=== PATIENT | female | born 1980 | race American Indian/Alaskan Native ===

== ENCOUNTER 2018-10-26 01:42 | Inpatient (IN) | payer MEDICAID ==
[2018-10-26] MEDS ORDERED: LACTATED RINGERS 1,000 ML ONE (02:02)
[2018-10-26] MEDS ORDERED: PITOCin/NS 20 UNIT/1000ML DRIP 20,000 MILLIUNITS/1,000 ML BAG IV ONE ×2 (02:02→03:08)
[2018-10-26] MEDS ORDERED: STADOL ONE (02:44)
[2018-10-26] MEDS ORDERED: XYLOCAINE 2% INFILTRATI ONE ×2 (02:45→03:52)
--- NOTE | 2018-10-26 03:44 | History and Physical Report ---
History of Present Illness Date of examination: 10/26/18 Date of admission: 10/26/18 01:56 Chief complaint: labor History of present illness: Menstrual History Regularity: regular Menses every: 28 days Duration: 4 LMP: 01/24/2018 LMP reliability: definite LMP character: normal test type: urine test Date: 05/17/2018 BC at conception: none Planned ? yes EDC Calculations LMP: 10/31/2018 EDC Confirmation: 10/31/2018 Gestational Age: 16 1/7 weeks Past History : 5 Term Births: 4 Premature Births: 0 Living Children: 4 Para: 4 Mult. Births: 0 Prev : 0 Aborta: 0 Elect. Ab: 0 Spont. Ab: 0 Ectopics: 0 # 1 Delivery date: 05/02/2003 Weeks Gestation: 40 Delivery type: Hours of labor: 8 Anesthesia type: epidural Delivery location: [facility] Sex: Male weight: [id number] Comments: Mild shoulder dystocia # 2 Delivery date: 01/31/2006 Weeks Gestation: 40 Delivery type: Hours of labor: 4 Delivery location: [facility] Infant Sex: Male weight: [id number] Comments: + Hep B # 3 Delivery date: 05/17/2007 Weeks Gestation: 41 Delivery type: Hours of labor: 3 Anesthesia type: none Delivery location: [facility] Sex: Male weight: [id number] # 4 Delivery date: 04/16/2010 Weeks Gestation: 40+1 Delivery type: Vaginal Anesthesia type: none Infant Sex: male weight: 6.69 Comments: precipitous Risk Factors: Smoked Tobacco Use: Never smoker Smokeless Tobacco Use: Never Passive smoke exposure: no Drug use: no HIV high-risk behavior: low risk Caffeine use: 0 drinks per day Alcohol use: no Seatbelt use: preg-queen's counsel % Dietary Counseling: pn yes Past Medical History: Reviewed history from 09/21/2009 and no changes required: Hepatitis B Past Surgical History: Reviewed history from 09/21/2009 and no changes required: Negative Past Surgical History Past Medical History Abnormal PAP: negative СВЕТЛАНА Exposure: negative Infertility: negative Uterine Anomaly: negative Uterine Surgery (not C/S): negative Other Gynecologic Problems: negative Infection History Hx of STD: none HIV Risk Eval: low risk Personal hx. of genital herpes: no Partner hx. of genital herpes: no Rash, Viral, or Febrile illness since last LMP? no Varicella/Chicken Pox Status: Previous Disease TB Risk: no Genetic History ADVANCED MATERNAL AGE Congenital Heart Defect: Mom: no Dad: no Chaparrita Disease: Mom: no Dad: no Thalassemia Mom: no Dad: no Neural Tube Defect Mom: no Dad: no Down's Syndrome Mom: no Dad: no Felix-Sachs Mom: no Dad: no Sickle Cell Disease/Trait Mom: no Dad: no Hemophilia Mom: no Dad: no Muscular Dystrophy Mom: no Dad: no Cystic Fibrosis Mom: no Dad: no [place] Chorea Mom: no Dad: no Mental Retardation Mom: no Dad: no Fragile X Mom: no Dad: no Other Genetic/Chromosomal Disorder Mom: no Dad: no Child w/other defect Mom: no Dad: no Enviromental Exposures Xray Exposure: no Medication, drug, or alcohol use since LMP: no Chemical/Other Exposure: no Exposure to Cat Liter: no Hx of Parvovirus (Fifth Disease): no Occupational Exposure to Children: none Active Medications: PRE- TABS ( [id number]) 1 po q day as directed Current Allergies: No known allergies Past History Past Medical History: other (see hpi) Past Surgical History: other (see hpi) COOKER SYRUP History: other (see hpi) Family/Genetic History: other (see hpi) Social history: other (see hpi) Medications and Allergies Allergies Allergy/AdvReac Type Severity Reaction Status Date / Time No Known Allergies Allergy Verified 10/26/18 03:07 Review of Systems All systems: negative (contractions.) - Vital Signs Vital signs: Vital Signs Pulse BP 90 99/44 10/26/18 02:16 10/26/18 02:16 Temp Pulse Resp BP Pulse Ox 70 20 126/74 10/26/18 03:33 10/26/18 03:25 10/26/18 03:33 - Physical Exam Breasts: Cardiovascular: Regular rate, Normal S1, Normal S2 Lungs: Positive: Clear to auscultation Abdomen: Positive: normal appearance, soft, normal bowel sounds. Negative: distention, tenderness Genitourinary (Female): Positive: normal external genitalia Vulva: both: normal Vagina: Positive: normal moisture. Negative: discharge Cervix: Negative: lesion, discharge Uterus: Positive: normal size, normal contour Adnexa: both: normal Anus/Rectum: Positive: normal perianal skin, heme negative. Negative: rectal mass, hemorrhoids Extremities: Deep Tendon Reflex Grade: Normal +2 - Obstetrical FHR: auscultation normal Uterine Contraction Monitor Mode: Palpation Cervical Dilatation: 7 Cervical Effacement Percentage: 100 station: +1 Uterine Contraction Pattern: Regular Uterine Tone Measurement Phase: Contraction Uterine Contraction Intensity: Strong/Firm Results All other labs normal. Assessment and Plan Patient presents to triage with complaints of labor and SROM at 0100, clear fluid. Per cornice upholsterer, JIGNESHE 7/100/+2. Admission orders placed. Pt reports hep b+. GBS is negative. Admission orders placed. Anticipate vaginal delivery.
[2018-10-26] MEDS ORDERED: STADOL IV PRN (03:52)
[2018-10-26] MEDS ORDERED: MINERAL OIL PO PRN (03:52)
[2018-10-26] MEDS ORDERED: SUBLIMAZE IV PRN (03:52)
[2018-10-26] MEDS ORDERED: BRETHINE IVP PRN (03:52)
[2018-10-26] MEDS ORDERED: BRETHINE SUB-Q PRN (03:52)
[2018-10-26] MEDS ORDERED: TYLENOL PO PRN (03:56)
[2018-10-26] MEDS ORDERED: TUCKS PAD TP PRN (03:56)
[2018-10-26] MEDS ORDERED: PHENERGAN PO PRN (03:56)
[2018-10-26] MEDS ORDERED: LANSINOH TP PRN (03:56)
[2018-10-26] MEDS ORDERED: ZOFRAN IV PRN (03:56)
[2018-10-26] MEDS ORDERED: MILK OF MAGNESIA PO PRN (03:56)
[2018-10-26] MEDS ORDERED: BENADRYL PO PRN (03:56)
[2018-10-26] MEDS ORDERED: DULCOLAX PR PRN (03:56)
[2018-10-26] MEDS ORDERED: SODIUM CHLORIDE FLUSH SYRINGE 10 ML IV NR (04:00)
[2018-10-26] MEDS ORDERED: LACTATED RINGERS 1,000 ML IV SCH (04:00)
[2018-10-26] MEDS ORDERED: PITOCin/NS 20 UNIT/1000ML DRIP 20 UNITS/1,000 ML BAG IV SCH ×2 (04:00)
--- NOTE | 2018-10-26 04:09 | Procedure Note ---
OB Delivery Note - Delivery Date of Delivery: 10/26/18 Tile Edger: NANCY CAMARENA Estimated blood loss: other (350) - Vaginal Delivery presentation: vertex Delivery position: OA Intrapartum events: precipitous labor- <3hr Delivery induction: none Delivery monitor: external FHT, external uterine Route of delivery: Delivery placenta: spontaneous Episiotomy: none Delivery laceration: 2nd degree Delivery repair: vicryl Anesthesia: local Delivery comments: of viable female . Infant placed skin to skin on mother's abdomen, drying and stimulation produces spontaneous vigorous cry. Cord clamped x2 upon cessation of pulsation and cut. Cord blood collected. Placenta delivered spontaneously and intact. 2nd degree laceration noted. Repaired with 2-0 vicryl in the normal fashion with Dr. Mason present. Laceration well approximated and hemostatic. Fundus firm,ML, hemostasis achieved. EBL 350. apgars 8/9, weight 8#11. Infant taken to nursery for bath and medications for mother's +hep B status. Placenta sent to pathology for AMA.
[2018-10-26 04:59] LABS: Hematocrit 38.5 % (30.3-42.9); Hemoglobin 12.8 gm/dl (10.1-14.3); Mean Corpuscular HGB Conc 33 % (30-34); Mean Corpuscular Volume 85 fl (79-97); Platelet Count 329 K/mm3 (140-440); Red Blood Count 4.53 M/mm3 (3.65-5.03)
[2018-10-26 16:14] LABS: Hematocrit 35.5 % (30.3-42.9); Hemoglobin 11.7 gm/dl (10.1-14.3)
[2018-10-26] MEDS: IBUPROFEN PO SCH (21:33)
[2018-10-27] MEDS: IBUPROFEN PO SCH (03:31)
[2018-10-27] MEDS ORDERED: BOOSTRIX IM ONE (03:56)
--- NOTE | 2018-10-27 08:47 | Discharge Summary ---
Providers - Providers Date of Admission: 10/26/18 01:56 Date of discharge: 10/27/18 (pt desires d/c) Attending physician: STEPHANI ESCALANTE Primary care physician: STEPHANI ESCALANTE Hospitalization Reason for admission: active labor Delivery: Episiotomy: none Laceration: none Incision: normal Other procedures: none complications: none Discharge diagnosis: IUP at term delivered [place] baby: female Hospital course: uncomplicated vaginal delivery Pt OOB in room Req d/c today VSS FF below umb Lochia small Perineum intact H&H stable No s/sx of anemia Doing well s/p vag delivery P: d/c today RTO 4 weeks PP care Condition at discharge: Good Disposition: DC-01 TO HOME OR SELFCARE - Discharge Diagnoses (1) Normal spontaneous vaginal delivery Status: Acute Comment: RTO 4 weeks PP care Plan - Provider Discharge Summary Activity: routine, no sex for 6 weeks, no heavy lifting 4 weeks, no strenuous exercise Diet: routine Instructions: routine Additional instructions: [] Smoking cessation referral if applicable(refer to patient education folder for contact #) [] Refer to [facility] Booklet Call your doctor immediately for: * Fever > 100.5 * Heavy vaginal bleeding ( >1 pad per hour) * Severe persistent headache * Shortness of breath * Reddened, hot, painful area to leg or breast * Drainage or odor from incision. * Keep incision clean and dry at all times and follow doctor's instructions regarding bathing/showering - Follow up plan Follow up: STEPHANI ESCALANTE MD [Primary Care Provider] - 11/23/18 (Congratulations! Please call [phone] to schedule your visit in 4 weeks. Motrin for cramping and pain. Call with concerns. )
[2018-10-27 18:20] VITALS: BP 109/58
== END 2018-10-27 16:15 | disposition home or self-care (01) | DRG 775 ==
LOC: TRG 01:42 → LD 01:56 → OB 04:53
PROVIDERS: ADMIT Obstetrics & Gynecology; ATTEND Obstetrics & Gynecology
PROC: 10E0XZZ Delivery of Products of Conception, External Approach (ICD-10-PCS; principal; 2018-10-26)
PROC: 0HQ9XZZ Repair Perineum Skin, External Approach (ICD-10-PCS; 2018-10-26)
DX: O62.3 Precipitate labor (principal); Z3A.37 37 weeks gestation of pregnancy; Z37.0 Single live birth; O70.1 Second degree perineal laceration during delivery
CPT/HCPCS: 36415; 85014; 85018; 85027; 86592; 86850; 86900; 86901; 88307; G0378; J0595; J2590; J7120